=== PATIENT | female | born 1990 | race Caucasian/White ===

== ENCOUNTER 2016-06-25 03:05 | Inpatient (IN) | payer OTHER ==
[2016-06-25] VITALS (48 sets, daily range): BP systolic 61–137; BP diastolic 54–80
[~2016-06-25] VITALS: Ht 160 cm; Wt 67.6 kg
[~2016-06-25 03:05] MED LIST: DIPH1TAB25 PO; FERR325T74 PO; IBP600T1 PO; ONDN4T PO; OXYC-12 PO; PREN1TAB39 PO
--- OUTSIDE RECORDS SUMMARY | 2016-06-25 03:09 | XMS REPORT | Continuity of Care Document ---
Author Author [facility] Address Unknown Phone Unavailable Allergies Medications Problems Date Dx Coded Attending Type Code Diagnosis Diagnosed By 04/07/2013 REYMUNDO BENITES APRN 625.8 OTHER SPECIFIED SYMPTOMS ASSOCIATED WITH FEMALE GENITAL ORGANS 04/07/2013 REYMUNDO BENITES APRN V74.5 STD SCREEN 04/07/2013 REYMUNDO BENITES APRN V76.10 BREAST CANCER SCREENING 04/07/2013 REYMUNDO BENITES APRN V76.2 CERVICAL CANCER SCREENING (PAP SMEAR) Procedures Code Description [place] [address] GC/CHLAM PROBE (STATE) 04/07/2013 68573 PAP SMEAR 2012 Q0091 PAP SMEAR OBTAIN SMEAR 04/07/2013 30517 URINE TEST (IN-HOUSE) 04/07/2013 82883 TRICHOMONAS (IN-HOUSE) 04/07/2013 34244 CULTURE UROGENITAL 04/09/2013 Results Encounters ACCT No. Visit Date/Time Discharge Status Pt. Type Provider Facility Loc./Unit Complaint [id number] 04/07/2013 09:05:00 04/07/2013 23: 59:59 CLS Outpatient REYMUNDO BENITES APRN
[2016-06-25] MEDS ORDERED: OSLT75C PO (03:14)
[2016-06-25] MEDS ORDERED: D5 LR IV SOLUTION 1,000 ML IV ONE (03:30)
[2016-06-25] MEDS: D5 LR IV SOLUTION 1,000 ML IV SCH ×2 (03:40→11:31)
[2016-06-25 04:27] LABS: BASOPHILS % (AUTO) 0 % (0-10); EOSINOPHILS % (AUTO) 0 % (0-10); LYMPHOCYTES % (AUTO) 12 % (12-44); MEAN CORPUSCULAR HEMOGLOBIN 27 PG (25-34); MEAN CORPUSCULAR HGB CONC 33 G/DL (32-36); MEAN CORPUSCULAR VOLUME 82 FL (80-99); MEAN PLATELET VOLUME 9.9 FL (7.4-10.4); MONOCYTES # (AUTO) 0.7 X 10^3 (0.0-1.0); MONOCYTES % (AUTO) 9 % (0-12); NEUTROPHILS # (AUTO) 6.2 X 10^3 (1.8-7.8); NEUTROPHILS % (AUTO) 79 % (42-75); PLATELET COUNT 231 10^3/uL (130-400); RED BLOOD COUNT 3.93 10^6/uL (4.35-5.85); RED CELL DISTRIBUTION WIDTH 13.9 % (10.0-14.5); WHITE BLOOD COUNT 7.8 10^3/uL (4.3-11.0)
[2016-06-25] MEDS: CATHETER FLUSH 10 ML SYR IV SCH ×2 (06:00→14:00)
[2016-06-25] MEDS ORDERED: fentaNYL INJECTION 100 MCG/2 ML AMP IVP ONE ×2 (06:30→07:30)
[2016-06-25] MEDS ORDERED: FLU TRIvalent (5 YOA+) 2016-17 (AFLURIA) 0.5 ML IM ONE (07:30)
[2016-06-25] MEDS ORDERED: fentaNYL INJECTION 100 MCG/2 ML AMP ONE (07:32)
[2016-06-25] MEDS ORDERED: LIDOCAINE PF 2% 10 ML (XYLOCAINE) AMP ONE (07:32)
[2016-06-25] MEDS ORDERED: BUPIVACAINE 0.25% 30 ML (SENSORCAINE) VIAL ONE (07:32)
[2016-06-25] MEDS ORDERED: SUFENTA 0.6MCG/ML BUPIVA 0.125 100 ML ONE (08:03)
--- NOTE | 2016-06-25 08:35 | History & Physical-OB ---
OB - Chief Complaint & HPI Date Date of Admission: Date of Admission: Jun 25, 2016 at 4:08 am Chief Complaint/History OB-Reason for Admission/Chief: Rupture of Membranes Hx : 3 Hx Para: 1 Expected Date of Delivery: Jul 14, 2016 Gestational Age in Weeks: 37 Admission Nurse Assessment Rev: Yes History of Labs A pos Antibody neg RI RPR NR HIV NR HBsAg NR GC neg GBS neg Allergies and Home Medications Allergies Coded Allergies: No Known Drug Allergies (Unverified , 09/10/10) Home Medications Oseltamivir Phosphate 75 Mg Cap 75 MG PO DAILY (Reported) Vits W-Ca,Fe,Fa(<1MG) 1 Each Tablet 1 EACH PO (Reported) OB - History Hx of Present Care: Yes Ultrasounds: Normal mid trimester US Obstetrical Complications: None Medical Complications: None Obstetrical History Hx : 3 Hx Para: 1 Hx Total # of Abortions (Spona: 1 Patient Past Medical History n/a Social History/Family History Recent Infectious Disease Expo: No Alcohol Use: Denies Use Recreational Drug Use: No OB - Admission Exam Physical Exam Vitals: Vital Signs 06/25/16 06:23 Temp 98.2 Pulse 73 Resp 18 B/P 119/67 O2 Delivery Room Air HEENT: NCAT Heart: Rhythm Normal Lungs: Clear Abdomen: Gravid Extremities: Normal Reflexes: Normal Cervical Dilatation: 3cm Effacement: 50% Station: -1 Membranes: Ruptured Amniotic Fluid: Clear Heart Rate: 130's Accelerations: Accelerations Present Decelerations: No Decelerations Short Term Variability: Present Air And Hydronic Balancing Technician Variability: Average (6-25) Contractions on Admission: 6-10 Minutes Apart Intensity: Mild Labs Laboratory Tests Test 06/25/16 04:20 Range/Units Basophils # (Auto) 0.0 0.0-0.1 10^3/uL Basophils (%) (Auto) 0 0-10 % Eosinophils # (Auto) 0.0 0.0-0.3 10^3/uL Eosinophils (%) (Auto) 0 0-10 % Hematocrit 32 L 35-52 % Hemoglobin 10.5 L 11.5-16.0 G/DL Lymphocytes # (Auto) 1.0 1.0-4.0 X 10^3 Lymphocytes (%) (Auto) 12 12-44 % Mean Corpuscular Hemoglobin 27 25-34 PG Mean Corpuscular Hemoglobin Concent 33 32-36 G/DL Mean Corpuscular Volume 82 80-99 FL Mean Platelet Volume 9.9 7.4-10.4 FL Monocytes # (Auto) 0.7 0.0-1.0 X 10^3 Monocytes (%) (Auto) 9 0-12 % Neutrophils # (Auto) 6.2 1.8-7.8 X 10^3 Neutrophils (%) (Auto) 79 H 42-75 % Platelet Count 231 130-400 10^3/uL Red Blood Count 3.93 L 4.35-5.85 10^6/uL Red Cell Distribution Width 13.9 10.0-14.5 % White Blood Count 7.8 4.3-11.0 10^3/uL OB - Assessment/Plan/Diagnosis Assessment Assessment: rupture of membranes Discharge Diagnosis Diagnosis: 25 yo G3 P 1 @ 37 weeks SROM Active labor GBS neg [facility] OLMSTEAD DO Jun 25, 2016 8:35 am
[2016-06-25] MEDS: OXYTOCIN/NORMAL SALINE 500 ML IV SCH ×2 (08:41→14:42)
[2016-06-25] MEDS ORDERED: diphenhydrAMINE 50 MG/ML INJ (BENADRYL) IV PRN (11:30)
[2016-06-25] MEDS ORDERED: LIDOCAINE PF 2% 10 ML (XYLOCAINE) AMP INJ ONE (11:30)
[2016-06-25] MEDS ORDERED: LACTATED RINGERS 1,000 ML IV ONE (11:30)
[2016-06-25] MEDS ORDERED: CATHETER FLUSH 10 ML SYR IV PRN (11:30)
[2016-06-25] MEDS ORDERED: BUPIVACAINE 0.25% 30 ML (SENSORCAINE) VIAL INJ ONE (11:30)
[2016-06-25] MEDS ORDERED: ONDANSETRON 4 MG/2 ML (SDV) Z0FRAN IV PRN (11:30)
[2016-06-25] MEDS ORDERED: EPIDURAL (SUFENTA 0.6MCG/ML BUPIVA 0.125%) 100 ML BAG EPI SCH (11:30)
[2016-06-25] MEDS ORDERED: fentaNYL INJECTION 100 MCG/2 ML AMP INJ ONE (11:30)
[2016-06-25] MEDS ORDERED: NALOXONE 0.4 MG/ML 1 ML (NARCAN) VIAL IV PRN (11:30)
[2016-06-25] MEDS ORDERED: LIDOCAINE/EPI 1%-1:200,000 (XYLOCAINE) 30 ML VIAL ONE (13:37)
[2016-06-25] MEDS ORDERED: OXYTOCIN/NORMAL SALINE 500 ML IV SCH (14:13)
[2016-06-25] MEDS ORDERED: BENZOCAINE/MENTHOL (DERMOPLAST) 56 ML CAN TP PRN (14:15)
[2016-06-25] MEDS ORDERED: MEASLES,MUMPS,RUBELLA 1 EA INJ SQ ONE (14:15)
[2016-06-25] MEDS ORDERED: APAP 300 MG/CODEINE 30 MG (TYLENOL #3) TAB PO PRN (14:15)
[2016-06-25] MEDS ORDERED: DIBUCAINE (NUPERCAINAL) 1% OINT 30 GM TOP PRN (14:15)
[2016-06-25] MEDS ORDERED: WITCH HAZEL(TUCKS) 40 EA JAR TOP PRN (14:15)
[2016-06-25] MEDS ORDERED: TETANUS,DIPTH,PERTUSS P/F (BOOSTRIX) 0.5 ML VIAL IM ONE (14:15)
--- NOTE | 2016-06-25 14:18 | OB Labor & Delivery Record ---
L&D History Date of Service Date of Service: Jun 25, 2016 History Expected Date of Delivery: Jul 14, 2016 Gestational Age in Weeks: 37 Hx : 3 Hx Para: 1 Complications Events: Routine care Operative Indications (Cesarea: N/A-Vaginal Delivery Intrapartal Events: None L&D Stage1 Stage One Onset of Labor - Date: Jun 25, 2016 Monitors and Tracing Monitor Mode: External Heart Rate: 135 Monitor Decelerations: None Station: -3 Detention Variability: Average (6-10) Short Term Variability: Present Presentation: Vertex Vital Signs VS - Last 72 Hours, by Label 06/25/16 06/25/16 06/25/16 06/25/16 03:25 06:23 07:25 07:40 Temp 98.3 98.2 98.3 Pulse 88 73 82 85 Resp 18 18 18 18 B/P 107/68 119/67 106/64 112/71 O2 Delivery Room Air Room Air Room Air Room Air 06/25/16 06/25/16 06/25/16 06/25/16 07:50 07:55 08:00 08:04 Pulse 76 77 104 105 Resp 18 18 18 20 B/P 111/70 110/71 101/60 61/60 Pulse Ox 100 100 99 99 O2 Delivery Room Air Room Air Room Air Room Air 06/25/16 06/25/16 06/25/16 06/25/16 08:08 08:12 08:16 08:20 Pulse 85 95 90 96 Resp 18 18 16 16 B/P 102/63 102/57 94/60 95/62 Pulse Ox 97 98 98 98 O2 Delivery Room Air Room Air Room Air Room Air 06/25/16 06/25/16 06/25/16 06/25/16 08:24 08:28 08:32 08:36 Pulse 88 88 99 89 Resp 18 18 18 18 B/P 96/58 102/62 105/80 95/58 Pulse Ox 98 98 97 97 O2 Delivery Room Air Room Air Room Air Room Air 06/25/16 06/25/16 06/25/16 06/25/16 08:40 08:45 08:50 08:55 Pulse 93 90 90 97 Resp 18 20 20 20 B/P 96/58 97/60 93/57 95/60 Pulse Ox 97 98 98 97 O2 Delivery Room Air Room Air Room Air Room Air 06/25/16 06/25/16 06/25/16 06/25/16 09:00 09:15 09:30 09:45 Pulse 83 81 92 81 Resp 20 18 18 18 B/P 98/62 101/60 99/70 99/64 Pulse Ox 97 97 98 98 O2 Delivery Room Air Room Air Room Air Room Air 06/25/16 06/25/16 06/25/16 06/25/16 10:05 10:20 10:35 10:50 Pulse 84 79 84 78 Resp 16 18 18 20 B/P 104/64 102/66 102/63 109/69 Pulse Ox 98 98 98 99 O2 Delivery Room Air Room Air Room Air Room Air 06/25/16 11:05 Temp 97.9 Pulse 78 Resp 20 B/P 103/62 Pulse Ox 99 O2 Delivery Room Air Rupture of Membranes Amniotic Membrane Rupture Time: 0200 Amniotic Fluid Membrane Tests: Nitrazine Positive Induction/Anesthesia Epidural Cath Placement - Time: 0753 Progress/Notes Patient presented with SROM, and karena in a dysfunctional pattern. IV pitocin was started at 830 for augmentation of dysfunctional labor pattern. Patient received epidural for analgesia and progressed to complete in this fashion. L&D Stage2 Stage Two Stage II Date: Jun 25, 2016 Monitors and Tracing Monitor Mode: External Heart Rate: 135 Monitor Decelerations: None Position: Right Occiput Anterior Presentation: Vertex Cord Descript/Complications Cord Vessel Description: 3 Vessels Delivery Type Delivery Method: Spontaneous Vaginal Anterior Shoulder: Right Episiotomy/Perineal Laceration Laceraction(s)/Extensions: Yes Episiotomy Description: Midline, Perineal Extension/lac, 2nd degree Degree (describe repair) midline perineal 2nd degree, repaired using 3-0 and 2-0 vicryl suture in normal fashion. Condition of Delivery 1 minute Comment: 9 5 minute Comment: 9 Notes live male weight 7lbs 3 oz. Condition of Condition of Infant: Living Exam: No Observed Abnormalities Resuscitation Resuscitation: N/A - Spontaneous Resp L&D Stage3 Stage Three Stage III Date: Jun 25, 2016 Pictocin Pitocin Administration mu/min: 4 Pitocin ml/hr: 4 Pitocin Administration Comment: 30 mu wide open at delivery of placenta Placenta Delivery Placenta Delivery: Spontaneous Delivery Summary Summary blood loss >1000ml: No Vaginal blood loss >500ml: No 350 Attending at delivery: Demarcus Olmstead DO Condition of Delivery Examined: Cervix Examined, Uterus Explored Post Hemorrhage: No Condition of Mother stable Condition of Infant (s) stable DEMARCUS OLMSTEAD DO Jun 25, 2016 2:18 pm
--- NOTE | 2016-06-25 14:19 | Discharge Inst-Women's Service ---
Discharge Inst-Women's Serv Depart Medication/Instructions New, Converted or Re-Newed RX: RX on Chart Consults/Follow Up Additional Follow Up: Yes Orders/Referrals Dr. Olmstead in 6 weeks Activity Activity: Activity as Tolerated Driving Instructions: No Driving for 1 Week NO SMOKING: NO SMOKING Nothing Inside Vagina: No Douching, No [place], No Tampons Diet Discharge Diet: No Restrictions Symptoms to Report to : Bleeding Excessive, Pain Increased, Fever Over 101 Degrees F, Vaginal Bleeding Increase, Questions/Concerns For Any Problems or Questions: Contact Your Physician Skin/Wound Care Bathing Instructions: Shower (x 2 weeks) VA OLMSTEAD DO Jun 25, 2016 2:19 pm
[2016-06-25] MEDS ORDERED: IBUP-1773 PO (14:21)
[2016-06-25] MEDS ORDERED: ACET1TAB43 PO (14:21)
[2016-06-25] MEDS ORDERED: FERR-74 PO (14:21)
[2016-06-25] MEDS ORDERED: DOCU100C37 PO (14:21)
[2016-06-25] MEDS: IBUPROFEN 600 MG (MOTRIN) TAB PO SCH ×2 (14:42→20:53)
[2016-06-25] MEDS: DOCUSATE SODIUM 100 MG (COLACE) CAP PO SCH (20:53)
[2016-06-25] MEDS ORDERED: CATHETER FLUSH 10 ML SYR IV SCH (22:00)
[2016-06-26 01:15] VITALS: BP 98/61
[2016-06-26 04:16] VITALS: BP 84/52
[2016-06-26] MEDS: IBUPROFEN 600 MG (MOTRIN) TAB PO SCH ×3 (04:16→13:53)
[2016-06-26 06:15] LABS: BASOPHILS % (AUTO) 0 % (0-10); EOSINOPHILS # (AUTO) 0.1 10^3/uL (0.0-0.3); EOSINOPHILS % (AUTO) 1 % (0-10); LYMPHOCYTES # (AUTO) 1.3 X 10^3 (1.0-4.0); LYMPHOCYTES % (AUTO) 11 % (12-44); MEAN CORPUSCULAR HEMOGLOBIN 26 PG (25-34); MEAN CORPUSCULAR HGB CONC 32 G/DL (32-36); MEAN CORPUSCULAR VOLUME 82 FL (80-99); MEAN PLATELET VOLUME 10.1 FL (7.4-10.4); MONOCYTES % (AUTO) 8 % (0-12); NEUTROPHILS # (AUTO) 9.6 X 10^3 (1.8-7.8); NEUTROPHILS % (AUTO) 80 % (42-75); PLATELET COUNT 207 10^3/uL (130-400); RED BLOOD COUNT 3.34 10^6/uL (4.35-5.85)
[2016-06-26] MEDS ORDERED: FERROUS SULF 325 MG (IRON) TAB PO SCH (07:00)
[2016-06-26] MEDS ORDERED: PRENATAL VITAMIN 1 EA TAB PO SCH (07:00)
--- NOTE | 2016-06-26 08:00 | Postpartum Progress Note ---
Note Note Day # 1 s/p Subjective: Patient is without complaints. Ambulating, voiding. Tolerating a regular diet without nausea or vomiting. Normal lochia. Pain is well controlled with oral pain medications. breast feeding. Objective: Laboratory Tests Test 06/26/16 06:00 Range/Units Basophils # (Auto) 0.0 0.0-0.1 10^3/uL Basophils (%) (Auto) 0 0-10 % Eosinophils # (Auto) 0.1 0.0-0.3 10^3/uL Eosinophils (%) (Auto) 1 0-10 % Hematocrit 28 L 35-52 % Hemoglobin 8.7 L 11.5-16.0 G/DL Lymphocytes # (Auto) 1.3 1.0-4.0 X 10^3 Lymphocytes (%) (Auto) 11 L 12-44 % Mean Corpuscular Hemoglobin 26 25-34 PG Mean Corpuscular Hemoglobin Concent 32 32-36 G/DL Mean Corpuscular Volume 82 80-99 FL Mean Platelet Volume 10.1 7.4-10.4 FL Monocytes # (Auto) 1.0 0.0-1.0 X 10^3 Monocytes (%) (Auto) 8 0-12 % Neutrophils # (Auto) 9.6 H 1.8-7.8 X 10^3 Neutrophils (%) (Auto) 80 H 42-75 % Platelet Count 207 130-400 10^3/uL Red Blood Count 3.34 L 4.35-5.85 10^6/uL Red Cell Distribution Width 14.0 10.0-14.5 % White Blood Count 12.0 H 4.3-11.0 10^3/uL Vital Signs 06/26/16 04:16 Temp 98.2 Pulse 81 Resp 18 B/P 84/52 Pulse Ox 98 O2 Delivery Room Air Physical Exam: General - Alert and oriented, no apparent distress Abdomen - Soft, appropriately tender to palpation, non-distended, fundus firm at umbilicus Extremities - no edema, negative Aure's bilaterally Assessment: 1. post- day # 1, status post spontaneous vaginal delivery. Recovering well, hemodynamically stable 2. Acute blood loss anemia - replacing iron, stable vitals Plan: Routine care. Encourage breast feeding. Encourage ambulation. Ferrous sulfate supplementation. Plan for discharge today Vitals - Labs Vital Signs - I&O Vital Signs Date Time Temp Pulse Resp B/P Pulse Ox O2 Delivery O2 Flow Rate FiO2 06/26/16 04:16 98.2 81 18 84/52 98 Room Air 06/26/16 01:15 97.5 86 18 98/61 98 Room Air 06/25/16 20:53 98.7 91 18 97/58 97 Room Air 06/25/16 16:00 99.1 86 18 91/54 Room Air 06/25/16 15:30 98.8 83 20 103/55 Room Air 06/25/16 15:00 98.8 91 20 111/61 Room Air 06/25/16 14:45 98.9 96 20 112/55 Room Air 06/25/16 14:30 98.6 105 18 110/58 Room Air 06/25/16 14:15 98.5 104 18 112/59 Room Air 06/25/16 14:00 99.0 111 20 117/57 Room Air 06/25/16 13:45 111 20 130/69 100 Room Air 06/25/16 13:30 97 20 137/64 100 Room Air 06/25/16 13:15 82 18 110/65 100 Room Air 06/25/16 13:05 80 20 107/59 100 Room Air 06/25/16 12:50 86 20 102/60 99 Room Air 06/25/16 12:35 87 20 111/70 99 Room Air 06/25/16 12:20 83 20 104/64 98 Room Air 06/25/16 12:05 81 18 107/64 100 Room Air 06/25/16 11:50 78 18 106/58 99 Room Air 06/25/16 11:35 85 18 102/59 99 Room Air 06/25/16 11:20 91 20 107/62 100 Room Air 06/25/16 11:05 97.9 78 20 103/62 99 Room Air 06/25/16 10:50 78 20 109/69 99 Room Air 06/25/16 10:35 84 18 102/63 98 Room Air 06/25/16 10:20 79 18 102/66 98 Room Air 06/25/16 10:05 84 16 104/64 98 Room Air 06/25/16 09:45 81 18 99/64 98 Room Air 06/25/16 09:30 92 18 99/70 98 Room Air 06/25/16 09:15 81 18 101/60 97 Room Air 06/25/16 09:00 83 20 98/62 97 Room Air 06/25/16 08:55 97 20 95/60 97 Room Air 06/25/16 08:50 90 20 93/57 98 Room Air 06/25/16 08:45 90 20 97/60 98 Room Air 06/25/16 08:40 93 18 96/58 97 Room Air 06/25/16 08:36 89 18 95/58 97 Room Air 06/25/16 08:32 99 18 105/80 97 Room Air 06/25/16 08:28 88 18 102/62 98 Room Air 06/25/16 08:24 88 18 96/58 98 Room Air 06/25/16 08:20 96 16 95/62 98 Room Air 06/25/16 08:16 90 16 94/60 98 Room Air 06/25/16 08:12 95 18 102/57 98 Room Air 06/25/16 08:08 85 18 102/63 97 Room Air 06/25/16 08:04 105 20 61/60 99 Room Air 06/25/16 08:00 104 18 101/60 99 Room Air I & O 06/26/16 07:00 Intake Total 1000 ml Balance 1000 ml Labs Laboratory Tests 06/26/16 06:00: Basophils # (Auto) 0.0, Basophils (%) (Auto) 0, Eosinophils # (Auto) 0.1, Eosinophils (%) (Auto) 1, Hematocrit 28L, Hemoglobin 8.7L, Lymphocytes # (Auto) 1.3, Lymphocytes (%) (Auto) 11L, Mean Corpuscular Hemoglobin 26, Mean Corpuscular Hemoglobin Concent 32, Mean Corpuscular Volume 82, Mean Platelet Volume 10.1, Monocytes # (Auto) 1.0, Monocytes (%) (Auto) 8, Neutrophils # (Auto ) 9.6H, Neutrophils (%) (Auto) 80H, Platelet Count 207, Red Blood Count 3.34L, Red Cell Distribution Width 14.0, White Blood Count 12.0H ODELL ROCHA DO Jun 26, 2016 08:00
[2016-06-26 08:30] VITALS: BP 106/72
--- NOTE | 2016-06-26 08:35 | Progress Note-Standard ---
Standard Progress Note Progress Notes/Assess & Plan Progress/Assessment & Plan Patient doing well PPD 1 NVD. Lochia light, pain well controlled. Ambulating and voiding freely. Vital Sign - Last 12Hours 06/25/16 06/26/16 06/26/16 20:53 01:15 04:16 Temp 98.7 97.5 98.2 Pulse 91 86 81 Resp 18 18 18 B/P 97/58 98/61 84/52 Pulse Ox 97 98 98 O2 Delivery Room Air Room Air Room Air Laboratory Tests Test 06/26/16 06:00 Range/Units Basophils # (Auto) 0.0 0.0-0.1 10^3/uL Basophils (%) (Auto) 0 0-10 % Eosinophils # (Auto) 0.1 0.0-0.3 10^3/uL Eosinophils (%) (Auto) 1 0-10 % Hematocrit 28 L 35-52 % Hemoglobin 8.7 L 11.5-16.0 G/DL Lymphocytes # (Auto) 1.3 1.0-4.0 X 10^3 Lymphocytes (%) (Auto) 11 L 12-44 % Mean Corpuscular Hemoglobin 26 25-34 PG Mean Corpuscular Hemoglobin Concent 32 32-36 G/DL Mean Corpuscular Volume 82 80-99 FL Mean Platelet Volume 10.1 7.4-10.4 FL Monocytes # (Auto) 1.0 0.0-1.0 X 10^3 Monocytes (%) (Auto) 8 0-12 % Neutrophils # (Auto) 9.6 H 1.8-7.8 X 10^3 Neutrophils (%) (Auto) 80 H 42-75 % Platelet Count 207 130-400 10^3/uL Red Blood Count 3.34 L 4.35-5.85 10^6/uL Red Cell Distribution Width 14.0 10.0-14.5 % White Blood Count 12.0 H 4.3-11.0 10^3/uL Uterine fundus firm and palpated below umbilicus Diagnosis: PPD 1 NVD Acute blood loss anemia P: Replace iron Anticipate dc either later today or tomorrow morning. VA OLMSTEAD DO Jun 26, 2016 8:35 am
[2016-06-26] MEDS: DOCUSATE SODIUM 100 MG (COLACE) CAP PO SCH (08:50)
--- NOTE | 2016-06-26 11:13 | Anesthesia-Regional Post-Op ---
Regional Patient Condition Mental Status: Alert, Oriented x3 Circulation: Same as Pre-Op Headache: Absent Sensation: Full Recovery Motor Block: Absent Post Op Complications Complications None Follow Up Care/Instructions Patient Instructions None needed. Anesthesia/Patient Condition Patient is doing well, no complaints, stable vital signs, no apparent adverse anesthesia problems. No complications reported per nursing. PRASANTH LOMAS CRNA Jun 26, 2016 11:13
[2016-06-26 12:30] VITALS: BP 98/63
[2016-06-26 16:55] VITALS: BP 98/63
== END 2016-06-26 16:55 | disposition home or self-care (01) | DRG 775 ==
LOC: WSo 03:05 → LDRP 03:05 → WSo 04:06 → LDRP 04:08
PROVIDERS: ADMIT Obstetrics & Gynecology; ATTEND Obstetrics & Gynecology
PROC: 10E0XZZ Delivery of Products of Conception, External Approach (ICD-10-PCS; principal; 2016-06-25)
PROC: 0KQM0ZZ Repair Perineum Muscle, Open Approach (ICD-10-PCS; principal; 2016-06-25)
DX: O70.1 Second degree perineal laceration during delivery (principal); O99.03 Anemia complicating the puerperium; D62 Acute posthemorrhagic anemia; Z3A.37 37 weeks gestation of pregnancy; Z37.0 Single live birth
CPT/HCPCS: 36415; 85025; 86850; 86900; 86901; 99212